=== PATIENT | female | born 1960 | race Two or more races ===

== ENCOUNTER 2021-01-29 08:19 | Emergency (ER) | payer OTHER ==
[~2021-01-29] VITALS: Ht 167.6 cm; Wt 111.1 kg
[2021-01-29 09:35] LABS: Basophils # (auto) 0 10 ^3/uL (0-0.2); Basophils % (auto) 0.7 % (0.0-2.0); Eosinophils # (auto) 0.2 10 ^3/uL (0-0.8); Eosinophils % (auto) 3.1 % (0.0-7.0); Hematocrit 41.4 % (36.0-46.0); Hemoglobin 13.7 g/dL (12.2-16.2); Lymphocytes # (auto) 1.1 10 ^3/uL (0.4-5.4); Lymphocytes % (auto) 21.2 % (10.0-50.0); Mean Corpuscular Hemoglobin 28.1 pg (28.0-32.0); Mean Corpuscular Volume 85.1 fL (80.0-100.0); Monocytes # (auto) 0.3 10 ^3/uL (0-1.3); Monocytes % (auto) 5.2 % (0.0-12.0); Neutrophils # (auto) 3.6 10 ^3/uL (1.6-8.6); Neutrophils % (auto) 69.8 % (37.0-80.0); Nucleated Red Blood Cells % 0.9 %; Red Blood Cells 4.87 10^6/uL (4.0-5.20); Red Cell Distribution Width 13.7 % (11.8-14.3); White Blood Cell 5.2 10^3/uL (4.4-10.8)
[2021-01-29 09:55] LABS: Albumin 3.9 g/dL (3.4-5.0); Calcium 8.9 mg/dL (8.5-10.1); Potassium 4.2 mmol/L (3.5-5.1)
[2021-01-29 09:59] LABS: BUN/Creatinine Ratio 22.9; Bilirubin, Total 0.4 mg/dL (0.2-1.0); Total Protein 7.3 g/dL (6.4-8.2)
[2021-01-29 12:12] LABS: Urine Bacteria FEW /hpf (None Seen); Urine Blood Negative /uL (Negative); Urine Mucus FEW (None Seen); Urine WBC 1 /hpf (0 - 5)
[2021-01-29 13:35] VITALS: BP 175/73
== END 2021-01-29 13:40 | disposition home or self-care (01) ==
LOC: ER 08:19
DX: K80.80 Other cholelithiasis without obstruction (principal)
CPT/HCPCS: 36415; 74176; 80053; 81001; 83690; 85025; 93005

== ENCOUNTER 2021-04-17 16:17 | Emergency (ER) | payer OTHER ==
[~2021-04-17] VITALS: Ht 170.2 cm; Wt 105.7 kg
[2021-04-17 19:40] VITALS: BP 146/89
== END 2021-04-17 19:48 | disposition home or self-care (01) ==
LOC: ER 16:17
DX: S39.012A Strain of muscle, fascia and tendon of lower back, initial encounter (principal); M79.604 Pain in right leg; M79.605 Pain in left leg; R07.81 Pleurodynia; X58.XXXA Exposure to other specified factors, initial encounter; Y93.89 Activity, other specified; Y92.89 Other specified places as the place of occurrence of the external cause; Y99.8 Other external cause status
CPT/HCPCS: 70450; 72100; 93005

== ENCOUNTER 2023-02-25 10:13 | Emergency (ER) | payer MEDICARE, OTHER ==
[~2023-02-25] VITALS: Ht 167.6 cm; Wt 106.3 kg
[2023-02-25 13:21] VITALS: BP 133/65; PULSE 71; RESP 18; TEMP 98.7; O2SAT 98
[2023-02-25] MEDS ORDERED: KETOROLAC TROMETH 30 MG/ML 1ML VIAL IM ONE (13:45)
[2023-02-25] MEDS ORDERED: methylPREDNISolone SOD SUCC 125 MG/2 ML VL IM ONE (13:45)
[2023-02-25] MEDS ORDERED: GABA-1308 PO (14:23)
[2023-02-25] MEDS ORDERED: MELO7.5T7 PO (14:23)
== END 2023-02-25 14:27 | disposition home or self-care (01) ==
LOC: ER 10:13
DX: R51.9 Headache, unspecified (principal); G50.0 Trigeminal neuralgia
CPT/HCPCS: 96372; 99284; J1885; J2930

== ENCOUNTER 2024-12-20 08:01 | Inpatient (IN) | payer OTHER ==
[~2024-12-20] VITALS: Ht 170.2 cm; Wt 112.2 kg
[~2024-12-20 08:01] MED LIST: ASPI1TAB20 PO; CEPH250C PO; HYDR-4902 PO; MELO7.5T7 PO; OMEP-434 PO; TRAZ-228 PO
[2024-12-20] MEDS ORDERED: fentaNYL CITRATE 100 MCG/2 ML VL ONE (10:14)
[2024-12-20] MEDS ORDERED: MIDAZOLAM HCL 2MG/2ML 2ml VIAL (1mg/ml) ONE ×2 (10:14→10:29)
[2024-12-20] MEDS: PREGABALIN CAPSULE 75 MG CAP PO ONE (10:16)
[2024-12-20] MEDS: ACETAMINOPHEN IV 1000 MG/100ML (10MG/ML) IV PRN (10:16)
[2024-12-20] MEDS: CELECOXIB 100 MG CAP PO ONE (10:16)
[2024-12-20] MEDS: ceFAZolin 2 GM/D5W50ml 50 ML IV ONE (10:18)
[2024-12-20] MEDS ORDERED: PROPOFOL 10 MG/ML 20 ML IV ONE (10:29)
[2024-12-20] MEDS: CEFEPIME 1GM/50ML 50 ML IV ONE (10:30)
[2024-12-20] MEDS: MORPHINE SULF PF 5 MG/10 ML VIAL ONE (11:04)
[2024-12-20] MEDS: KETOROLAC TROMETH 30 MG/ML 1ML VIAL ONE (11:04)
[2024-12-20] MEDS: BUPIVACAINE 0.25% INJ 50ML VIAL ONE (11:04)
[2024-12-20] MEDS: VANCOMYCIN HCL 1000 MG VL ONE (11:06)
[2024-12-20] MEDS ORDERED: MORPHINE SULFATE INJ 2 MG/ml SYRG IV PRN (11:45)
[2024-12-20] MEDS ORDERED: NITROGLYCERIN 0.4 MG SL TAB SL PRN (11:45)
[2024-12-20] MEDS ORDERED: ONDANSETRON HCL 4 MG/2 ML VIAL IV PRN ×2 (11:45→12:00)
[2024-12-20] MEDS ORDERED: ceFAZolin 1GM/50ML 50 ML IV SCH (11:45)
[2024-12-20 11:53] VITALS: PULSE 59; RESP 12
[2024-12-20] MEDS: LACTATED RINGER'S 1,000 ML IV SCH (11:53)
[2024-12-20] MEDS ORDERED: ACETAMINOPHEN IV 1000 MG/100ML (10MG/ML) IV PRN (12:00)
[2024-12-20] MEDS ORDERED: HYDROmorphone HCL 2 MG/ML VL/or syr IV PRN (12:00)
[2024-12-20] MEDS ORDERED: MEPERIDINE HCL (25 MG/ML) 1ML VIAL IV PRN (12:00)
--- NOTE | 2024-12-20 12:42 | DVH ---
CLINICAL INDICATION: S/P SURGERY TECHNIQUE: 3 radiographic views of the right knee were obtained. Comparison: XR KNEE COMPLETE RT on DOS: 11/08/22, XR KNEE COMPLETE LT on DOS: 11/07/22 FINDINGS/IMPRESSION: Postop changes total right knee arthroplasty. Skin closure millicent are in place anteriorly. Postop changes with air collections in the soft tissues consistent with operative changes.
[2024-12-20] MEDS: TRANEXAMIC ACID 20 ML ONE (13:08)
[2024-12-20] MEDS: CELECOXIB 100 MG CAP ONE (13:08)
[2024-12-20] MEDS: ACETAMINOPHEN IV 100 ML IV ONE (13:08)
[2024-12-20] MEDS: PREGABALIN CAPSULE 75 MG CAP ONE (13:09)
[2024-12-20] MEDS: GABAPENTIN 300 MG CAP ONE (13:09)
[2024-12-20] MEDS: PREGABALIN 25 MG CAP ONE (13:09)
[2024-12-20] MEDS: ROPIVACAINE 0.5% (5MG/ML) 20ML AMPULE IJ ONE (13:09)
[2024-12-20 16:00] VITALS: BP 139/89; PULSE 65; RESP 17; TEMP 97.5; O2SAT 98
--- NOTE | 2024-12-20 16:06 | DVHINCON2 ---
Date Seen: Dec 20, [address] BATES Allergies: Coded Allergies: NO KNOWN ALLERGIES (Unverified , 01/29/21) Home Meds Active Scripts Meloxicam (Meloxicam) 7.5 Mg Tab, 1 TAB PO DAILY for 30 Days, #30 TAB 0 Refills Prov:KAYDEN MCNALLY TEST SKEIN WINDER 02/25/23 Reported Medications Trazodone Hcl (Trazodone Hcl) 100 Mg Tab, PO, TAB 12/16/24 Hydrocodone-Acetaminophen (Hydrocodone Bitartrate/AC 5-325 mg) 1 Tab Tab, PO, TAB 12/16/24 Omeprazole Magnesium (Omeprazole) 20 Mg Tab, PO, TAB 12/16/24 Cephalexin (KEFLEX CAPSULE) 250 Mg Cp, PO, CAP 12/16/24 Aspirin (Aspir-81) 81 Mg Tab, 81 MG PO, TAB 12/16/24 Current Medications Current Medications Medications (Trade) Dose Ordered Sig/Rocky Route PRN Reason Start Time Stop Time Status Last Admin Acetaminophen (Ofirmev) 1,000 mg [id number] PRN IV PAIN SCALE 1-3 OR TEMP>100.4 12/20/24 09:45 12/20/24 10:00 DC 12/20/24 10:16 Cefepime HCl 50 ml @ 12.5 mls/hr DAILY IV 12/21/24 10:00 Lactated Ringer's 1,000 ml @ 100 mls/hr Q10H IV 12/20/24 11:45 12/20/24 11:53 Sodium Chloride (Saline Lock Ns) 10 ml Q8HR IV 12/20/24 14:00 Cefazolin Sodium 50 ml @ 50 mls/hr Q6H IV 12/20/24 11:45 12/20/24 13:15 DC Oxycodone/ Acetaminophen (Percocet 5/ 325MG Tablet) 1 tab Q4HP PRN PO MODERATE PAIN 12/20/24 11:45 Hydromorphone HCl (Dilaudid Injection) 1 mg Q2HP PRN IV SEVERE PAIN (7-10 PAIN SCALE) 12/20/24 12:41 Ondansetron HCl (Zofran) 4 mg Q6HP PRN IV NAUSEA / VOMITING 12/20/24 11:45 Docusate Sodium (Colace Capsule) 100 mg Q12HR PO 12/20/24 22:00 Nitroglycerin (Ntrostat Sublingual) 0.4 mg Q5MINP PRN SL FOR CHEST PAIN 12/20/24 11:45 Morphine Sulfate 2 mg Q30M PRN IV FOR CHEST PAIN 12/20/24 11:45 Aspirin (Ecotrin Enteric Coated Tablet) 81 mg BID PO 12/21/24 09:00 Acetaminophen (Ofirmev) 1,000 mg [id number] PRN IV PAIN SCALE 1-3 OR TEMP>100.4 12/20/24 12:00 12/20/24 12:05 DC Ondansetron HCl (Zofran) 4 mg ONCE PRN IV NAUSEA / VOMITING 12/20/24 12:00 12/20/24 12:03 DC Hydromorphone HCl (Dilaudid Injection) 0.5 mg Q10M PRN IV SEVERE PAIN (7-10 PAIN SCALE) 12/20/24 12:00 12/20/24 12:41 DC Meperidine HCl (Demerol Injection) 25 mg Q10M PRN IV MODERATE PAIN (4-6 PAIN SCALE) 12/20/24 12:00 12/20/24 12:31 DC Cefazolin Sodium 50 ml @ 50 mls/hr Q6H IV 12/20/24 18:00 12/21/24 06:59 UNV Vital Signs Vital Signs Date Time Temp Pulse Resp B/P (MAP) Pulse Ox O2 Delivery O2 Flow Rate FiO2 12/20/24 14:45 64 12 147/78 (101) 95 12/20/24 11:53 97.1 97.1 Assessment SEE DICTATED NOTE Plan discussed with: Patient Date of Service: Dec 20, 2024 Billing Provider: BECKY SHAFFER MD Common Visit Codes: [id number] INP/OBS CARE (HIGH) Secondary Visit Codes: [id number] CARE PLAN 30 MINUTES BECKY SHAFFER MD Dec 20, 2024 16:06
[2024-12-20] MEDS: SODIUM CHLOR 0.9% PF (SALINE LOCK) 10ML VIAL/SYR IV SCH (16:52)
[2024-12-20 17:59] VITALS: BP 142/82; PULSE 59; RESP 18; TEMP 97.9; O2SAT 96
--- NOTE | 2024-12-20 18:45 | DVHINCON2 ---
INTERNAL MEDICINE CONSULT HISTORY OF PRESENT ILLNESS: The patient is a 64-year-old lady who is admitted after she underwent surgery on the right knee for DJD of the knee. The patient at this time denies any significant pain. No chest pain, no shortness of breath, no nausea or vomiting. REVIEW OF SYSTEMS: Review of rest of systems are otherwise currently negative. PAST MEDICAL HISTORY: No significant illness in the past except for previous knee surgery. MEDICATIONS: She takes [place] p.r.n. and meloxicam. ALLERGIES: No known drug allergies. SOCIAL HISTORY: Denies smoking, alcohol. Lives at home with her . FAMILY HISTORY: Negative. PHYSICAL EXAMINATION: GENERAL: On exam, the patient is awake and alert. VITAL SIGNS: Temperature of 97.2, pulse of 64 per minute, blood pressure 147/78. SHEENT: Unremarkable. NECK: There is no JVD. No pedal edema. LUNGS: Equal bilaterally. No added sounds. CARDIOVASCULAR: S1 and S2 is regular and normal. ABDOMEN: Soft. There is no organomegaly. NEUROLOGIC: Nonfocal. MUSCULOSKELETAL: The right knee is currently in the dressing. ASSESSMENT AND PLAN: * Obesity. * Status post right knee surgery for degenerative joint disease of the knee for which she will be placed on pain medication and receive physical therapy. * Advanced care planning: The patient is a full code-Time spent was 17 minutes. MD ARABELLA Rothman/DUARTE TID: [id number] RECEIPT: [id number] MTDD
[2024-12-20] MEDS: ceFAZolin 1GM/50ML 50 ML IV SCH (20:18)
[2024-12-20] MEDS: HYDROmorphone HCL 2 MG/ML VL/or syr IV PRN (20:18)
[2024-12-20] MEDS: DOCUSATE SOD 100 MG CAP PO SCH (20:35)
[2024-12-20 20:59] VITALS: BP 164/92; PULSE 68; RESP 18; O2SAT 96
[2024-12-20] MEDS: OXYCODONE W/ ACETAMINOPHEN 5/325MG TABLET PO PRN (21:07)
[2024-12-21 00:41] VITALS: BP 115/83; PULSE 66; RESP 16; O2SAT 91
[2024-12-21] MEDS: ceFAZolin 1GM/50ML 50 ML IV SCH (02:23)
[2024-12-21 05:00] VITALS: BP 105/59; PULSE 76; RESP 18; O2SAT 93
[2024-12-21 06:15] LABS: Hematocrit 40.8 % (36.0-46.0); Hemoglobin 13.9 g/dL (12.2-16.2); Mean Corpuscular Hemoglobin 30.1 pg (28.0-32.0); Mean Corpuscular Volume 88.7 fL (80.0-100.0); Nucleated Red Blood Cells % 0.2 %
[2024-12-21 06:37] LABS: Alanine Aminotransferase 36 U/L (7-40); Albumin 4.1 g/dL (3.2-4.8); Alkaline Phosphatase 83 U/L (46-116); Anion Gap 10 (5-15); BUN/Creatinine Ratio 14.8 (10.0-20.0); Bilirubin, Total 0.5 mg/dL (0.2-1.0); Blood Urea Nitrogen 12 mg/dL (9-23); Calcium 9.0 mg/dL (8.7-10.4); Carbon Dioxide 27 mmol/L (20-31); Chloride 103 mmol/L (98-107); Potassium 4.6 mmol/L (3.5-5.1); Sodium 140 mmol/L (136-145); Total Protein 6.9 g/dL (5.7-8.2)
[2024-12-21 06:38] LABS: Glucose 140 mg/dL (74-106)
--- NOTE | 2024-12-21 07:24 | DVHOP2 ---
Operative Report - 2 Report Details Date: 12/20/24 Preop Diagnosis: Right knee osteoarthritis Postop Diagnosis: as above Surgeon: Terry Bates MD Anger Control Counselor: Dylan VILLALOBOS Anesthesiologist: Rayne BOSS Anesthesia: Regional Implant: [employer] CR Size 6 femur Size 4 tibia 10 CR poly 26 mm patella Consent: The patient was informed of the risks and benefits of the procedure. These include but are not limited to complications of anesthesia, postoperative infection, incomplete relief of symptoms, recurrence of symptoms, damage to blood vessels, nerves and tendons, deep venous thrombosis, pulmonary embolism and possible need for repeat surgery in the future. Estimated Blood Loss: 50 cc Name of Procedure Performed Right total knee arthroplasty Procedure Details Procedure Details: FINDINGS: Extensive degenerative disease with grade IV changes INDICATION: This patient has failed non-operative treatments for knee arthritis and is now indicated for a total knee replacement. Preoperatively in the waiting area as well as in the office, I had a long discussion with the patient r egarding the plan, the expected outcome, the risks, benefits, and alternatives of surgery. The risks include, but are not limited to, infection (which may require future surgery and removal of implants) , bleeding (which may require a transfusion), damage to nerves, arteries, veins, tendons, muscles and other adjacent structures. Also discussed the possibilities of intraoperative f ractures, implant loosening, heterotopic bone formation, and revision for variety of reasons, and medical complications etc. This was discussed at length and consent has been obtained. DESCRIPTION OF PROCEDURE: In the preoperative holding area, the consent was reviewed and the appropriate extremity was verified by the patient and marked with my initials. The patient was then transferred to the operating theatre. Appropriate anesthesia was induced. All bony prominences were well padded. A time out was performed verifying the side and site of surgery according to standard protocol. Preoperative antibiotics were given 10 minutes prior to tourniquet inflation. Tranexamic acid was given. A well padded thigh tourniquet was applied. The extremity was then prepped and draped in the usual sterile fashion. The extremity was exsanguinated and the tourniquet was inflated. We then made a mid-line incision, which we continued to the underlying capsular tissue. We performed a medial parapatellar arthrotomy. We periosteally exposed the proximal tibia, excised the anterior fat pad and synovium from the distal aspect of the femur. We then subluxed the patella and brought the knee up into flexion. The lateral meniscus, ACL were released. We used the appropriate gu tavo with attached computer navigation to secure the distal femoral cutting block to the femur with pins and completed the distal femoral cut in 0 degrees to the mechanical axis with an oscillating saw. We removed the distal femoral cutting block and turned our attention to the tibia. We used the extramedullary tibial alignment guide with computer navigation to secure the proximal tibial cutting block to the tibia with pins, setting it for a 2 mm cut from the more involved side, and completed the proximal tibial cut. We then used the spacer block and alignment armando to check the varus-valgus angle of our cuts and the extension gap. The knee was then balanced in extension to varus/valgus stress. We marked our femoral anatomy, including Aguada's line and the epicondylar axis. Using that as a rotational guide, we used the sizing guide to size our femur properly, using a stylus to ensure there would be no notching. We then used the AP cutting guide to make our anterior and posterior cuts and chamfer cuts with an oscillating saw. We again checked the flexion and extension gaps and coronal balancing. Next, we sized our tibia and secured a baseplate with appropriate rotation with pins. We placed a trial femur in position and completed preparation of the notch with reamers and box osteotome and placed a trial notch in position. We used trials to choose our liner size and then placed the liner in place and reduced the knee. We used an oscillating saw to resurface the patella, and used a guide to choose the button size and completed patella preparation with the drill. We then placed a trial button in place. At this point, we checked our seven parameters: 1) Limb alignment 2) Extension 3) Flexion against gravity 4) Flexion stability 5) Varus-valgus balancing 6) Component rotation 7) Patella tracking We were satisfied with these and removed all trials with the exception of the baseplate. We completed preparation of the tibia with the appropriate reamer and keel impactor and then removed the baseplate. We placed a bone plug in the distal femur and then irrigated and dried all bony surfaces and injected our pain cocktail. We impacted our tibial and patellar components into position. I then cemented femur component as there was softening of her bone and I did not want to rely on only porous fixation. We impacted our liner and reduced the knee and held it with axial loading. We released the tourniquet and achieved hemostasis where necessary. A dilute betadine solution (17.5mL in 500mL saline) was used to wash the joint and left to sit for 3 minutes. This was then irrigated out with copious amounts of pulse lavage. We sprinkled 1g vancomycin powder below the fascia and 1g above the fascia. We copiously irrigated the knee. We re-checked our seven parameters. We closed our capsular incision with a PDS style suture. We irrigated further. We closed the subcutaneous tissue with Vicryl suture and re-approximated the skin with millicent. We verified all lower extremity compartments were soft and compressible and that we had intact distal pulses. We wrapped the extremity in sterile Webril and pat bandage. The patient was transferred to the recovery room in stable condition. Condition Good Disposition Still a Patient TERRY BATES MD Dec 21, 2024 07:24
[2024-12-21 07:56] VITALS: BP 110/68; PULSE 74; RESP 20; TEMP 98.5; O2SAT 95
--- NOTE | 2024-12-21 08:13 | DVHPN2 ---
Progress Note Date Seen: Dec 21, 2024 Medical Necessity Reason Pt with a Central, PICC or Fol: No Subjective Patient reports: No new complaints Objective vital signs Vital Sign Date Time Temp Pulse Resp B/P (MAP) Pulse Ox O2 Delivery O2 Flow Rate FiO2 12/21/24 07:56 98.5 74 20 110/68 (82) 95 98.5 12/20/24 20:00 Room Air* 0 21 Total Intake and Output 12/20/24 12/20/24 12/21/24 15:00 23:00 07:00 Intake Total 200 ml 50 ml 850 ml Balance 200 ml 50 ml 850 ml medications Current Medications Medications Dose Ordered Sig/Rocky Route Start Time Stop Time Status Last Admin Dose Admin Cefepime HCl 50 ml @ 12.5 mls/hr DAILY IV 12/21/24 10:00 Lactated Ringer's 1,000 ml @ 100 mls/hr Q10H IV 12/20/24 11:45 12/20/24 17:37 100 MLS/HR Sodium Chloride 10 ml Q8HR IV 12/20/24 14:00 12/21/24 05:15 10 ML Oxycodone/ Acetaminophen 1 tab Q4HP PRN PO 12/20/24 11:45 12/20/24 21:07 1 TAB Hydromorphone HCl 1 mg Q2HP PRN IV 12/20/24 12:41 12/21/24 05:15 1 MG Ondansetron HCl 4 mg Q6HP PRN IV 12/20/24 11:45 Docusate Sodium 100 mg Q12HR PO 12/20/24 22:00 12/20/24 20:35 100 MG Nitroglycerin 0.4 mg Q5MINP PRN SL 12/20/24 11:45 Morphine Sulfate 2 mg Q30M PRN IV 12/20/24 11:45 Aspirin 81 mg BID PO 12/21/24 09:00 Cefazolin Sodium 50 ml @ 50 mls/hr Q6H IV 12/21/24 02:00 12/21/24 08:59 12/21/24 02:23 50 MLS/HR Examination: GENERAL:Normal, MSK:Abnormal laboratory and microbiology Laboratory Tests 12/21/24 04:30 Test 12/21/24 04:30 Range/Units Serum Glucose 140 H 74-106 mg/dL Problem List/Assessment/Plan Problem List/Assessment/Plan 64 year old female who is s/p Right TKA POD 1 1. pain control 2. DVT ppx 3. physical therapy 4. CPM as ordered 5. Ice as needed for swelling 6. d/c planning for home tomorrow Plan discussed with: Patient Date of Service: Dec 21, 2024 Billing Provider: SERGIO BATES MD Common Visit Codes: NOT BILLABLE CYNTHIA SUERO NP Dec 21, 2024 08:13
[2024-12-21] MEDS: ASPirin-EC 81 mg tab PO SCH (08:37)
[2024-12-21] MEDS: CEFEPIME 1GM/50ML 50 ML IV SCH (11:01)
--- NOTE | 2024-12-21 11:48 | DVHPN2 ---
Progress Note Date Seen: Dec 21, 2024 Medical Necessity Reason Pt with a Central, PICC or Fol: No Subjective Patient reports: No new complaints Review of Systems: HEENT:Normal, CVS:Normal, RESPIRATORY:Normal, GI:Normal, :Normal, MSK:Normal, NEURO:Normal Objective vital signs Vital Sign Date Time Temp Pulse Resp B/P (MAP) Pulse Ox O2 Delivery O2 Flow Rate FiO2 12/21/24 11:23 74 20 110/68 12/21/24 08:00 Room Air* 0 21 12/21/24 07:56 98.5 95 98.5 Total Intake and Output 12/20/24 12/20/24 12/21/24 15:00 23:00 07:00 Intake Total 200 ml 50 ml 850 ml Balance 200 ml 50 ml 850 ml medications Current Medications Medications Dose Ordered Sig/Rocky Route Start Time Stop Time Status Last Admin Dose Admin Cefepime HCl 50 ml @ 12.5 mls/hr DAILY IV 12/21/24 10:00 12/21/24 11:01 12.5 MLS/HR Lactated Ringer's 1,000 ml @ 100 mls/hr Q10H IV 12/20/24 11:45 12/20/24 17:37 100 MLS/HR Sodium Chloride 10 ml Q8HR IV 12/20/24 14:00 12/21/24 05:15 10 ML Oxycodone/ Acetaminophen 1 tab Q4HP PRN PO 12/20/24 11:45 12/20/24 21:07 1 TAB Hydromorphone HCl 1 mg Q2HP PRN IV 12/20/24 12:41 12/21/24 11:23 1 MG Ondansetron HCl 4 mg Q6HP PRN IV 12/20/24 11:45 Docusate Sodium 100 mg Q12HR PO 12/20/24 22:00 12/21/24 11:01 100 MG Nitroglycerin 0.4 mg Q5MINP PRN SL 12/20/24 11:45 Morphine Sulfate 2 mg Q30M PRN IV 12/20/24 11:45 Aspirin 81 mg BID PO 12/21/24 09:00 12/21/24 11:02 81 MG Examination: GENERAL:Normal, HEENT:Normal, NECK:Normal, LUNGS:Normal, CVS:Normal, ABDOMEN:Normal, MSK:Normal, MSK:Abnormal (right knee dressing), SKIN:Normal, NEURO:Normal, :Normal laboratory and microbiology Laboratory Tests 12/21/24 04:30 Test 12/21/24 04:30 Range/Units Serum Glucose 140 H 74-106 mg/dL Problem List/Assessment/Plan Problem List/Assessment/Plan * Obesity. * Status post right knee surgery for degenerative joint disease of the knee for which she will be placed on pain medication and receive physical therapy. * Advanced care planning: The patient is a full code-Time spent was 17 minutes. Plan discussed with: Patient My Orders My Orders Orders - BECKY SHAFFER MD Procedure Category Date Status Time Urinalysis LAB 12/20/24 Uncollected 16:03 Lactated Ringers 1000 PHA 12/21/24 Transmitted mL 12:00 * Dermatological Surgeon CONS 12/21/24 Transmitted Consult Date of Service: Dec 21, 2024 Billing Provider: BECKY SHAFFER MD Common Visit Codes: [id number] INP/OBS CARE(HIGH) BECKY SHAFFER MD Dec 21, 2024 11:48
[2024-12-21 12:20] VITALS: BP 132/77; PULSE 83; RESP 20; TEMP 98.4; O2SAT 90
[2024-12-21] MEDS: LACTATED RINGER'S 1,000 ML IV SCH (16:08)
[2024-12-21 16:55] VITALS: BP 126/76; PULSE 78; RESP 20; TEMP 98.6; O2SAT 96
[2024-12-21 20:43] VITALS: BP 151/80; PULSE 90; RESP 18; TEMP 98.5; O2SAT 95
[2024-12-22 00:44] VITALS: BP 134/70; PULSE 73; RESP 18; TEMP 98.4; O2SAT 96
[2024-12-22 06:39] LABS: Hematocrit 36.5 % (36.0-46.0); Hemoglobin 12.5 g/dL (12.2-16.2)
--- NOTE | 2024-12-22 07:25 | DVHPN2 ---
Progress Note Date Seen: Dec 22, 2024 Medical Necessity Reason Pt with a Central, PICC or Fol: No Subjective Patient reports: No new complaints Objective vital signs Vital Sign Date Time Temp Pulse Resp B/P (MAP) Pulse Ox O2 Delivery O2 Flow Rate FiO2 12/22/24 00:44 98.4 73 18 134/70 (91) 96 98.4 12/21/24 20:00 Room Air* 0 21 Total Intake and Output 12/21/24 12/21/24 12/22/24 15:00 23:00 07:00 Intake Total 560 ml 0 ml Output Total 400 ml Balance 160 ml 0 ml medications Current Medications Medications Dose Ordered Sig/Rocky Route Start Time Stop Time Status Last Admin Dose Admin Cefepime HCl 50 ml @ 12.5 mls/hr DAILY IV 12/21/24 10:00 12/21/24 11:01 12.5 MLS/HR Sodium Chloride 10 ml Q8HR IV 12/20/24 14:00 12/22/24 06:34 10 ML Oxycodone/ Acetaminophen 1 tab Q4HP PRN PO 12/20/24 11:45 12/21/24 18:29 1 TAB Hydromorphone HCl 1 mg Q2HP PRN IV 12/20/24 12:41 12/21/24 21:36 1 MG Ondansetron HCl 4 mg Q6HP PRN IV 12/20/24 11:45 Docusate Sodium 100 mg Q12HR PO 12/20/24 22:00 12/21/24 21:34 100 MG Nitroglycerin 0.4 mg Q5MINP PRN SL 12/20/24 11:45 Morphine Sulfate 2 mg Q30M PRN IV 12/20/24 11:45 Aspirin 81 mg BID PO 12/21/24 09:00 12/21/24 21:34 81 MG Lactated Ringer's 1,000 ml @ 60 mls/hr [id number] IV 12/21/24 12:00 12/21/24 16:08 60 MLS/HR Examination: GENERAL:Normal, MSK:Abnormal laboratory and microbiology Laboratory Tests 12/22/24 04:28 12/21/24 04:30 Test 12/21/24 04:30 Range/Units Serum Glucose 140 H 74-106 mg/dL Problem List/Assessment/Plan Problem List/Assessment/Plan 64 year old female who is s/p Right TKA POD 2 1. pain control 2. DVT ppx 3. physical therapy 4. CPM as ordered 5. Ice as needed for swelling 6. Prescriptions for percocet, colace, aspirin and keflex sent on 12/[facility] to [facility] 7. Patient has scheduled postop visit on 01/05/2025 at 10:45 8. patient aware that aquacel can remain in place until first postop visit 9. patient is clear for discharge from orthopedic standpoint with the following discharge recommendations: Total Knee Arthroplasty Discharge Instructions Wound Care 1. You will likely have a gel-type dressing over your wound, you may keep this on for 7-14 days after leaving the hospital until your first post-op visit, unless it becomes soiled or your skin becomes irritated. If a wound vac dressing is placed on your knee this is to be left in place for one week and will be changed as needed. After your remove the dressing or wound vac, the home health nurse may place clean dry dressing over your wound. Keep wound covered, clean and dry for two weeks. 2. Tracey will be removed during your initial post-op visit. If you have concerns about our wound, please call the office immediately. If nervous about staple removal can take pain pill one hour prior to appointment. 3. If there is drainage from your wound, change the dressing daily until it stops. If drainage lasts more than 10 days, call our office. 4. Low grade (up to 100 degrees) fever is common for the first week after surgery. You should take your temperature daily. If you have fevers of 101 or more, please call the office. Medication Management 1. You will be discharged with pain medication, a blood thinner (unless you were previously on a blood thinner prior to surgery) and stool softener. Please follow the instructions regarding these medications as provided by your nurse at the hospital upon discharge. 2. Blood clots in the leg are a known complication of surgery. It is very important that you take the medication to protect against clots. Depending on what you are discharged on typically it is Lovenox 40mg daily for 2 weeks or Aspirin 81mg twice daily for 4 weeks. After you finish this, you should then take baby Aspirin (81mg) once daily for 2 weeks. 3. You should restart all of your prescription medications once discharged from the hospital/surgery center unless specifically instructed otherwise. 4. Herbal supplements may be restarted 2 weeks after surgery. 5. If you have been given Coumadin as a blood thinner, please follow up with your mail room during the first two weeks after surgery to review medications and overall medical well-being. 6. Please note that narcotic pain medication may cause constipation. Please remember to take stool softeners (Colace) when using narcotics to help reduce the change of constipation. You should not use alcohol together with narcotic medication. Activity 1. CPM as ordered, goal is for 6 hours every day for the first 21 days of your recovery. Can break it up in to increments of 2-3 hours at a time. Most hospitals will start at 45 degrees of flexion, and increase by 5 degrees daily until the machine has been maxed out. The goal is to be at 90 degrees by first postop visit in 2 weeks. 2. No pool, jacuzzi, beach, lobato or bath for 6 weeks. Once all scabbing has fallen off patient can begin soaking and submerging knee under water for 15- minute periods at a time. 3. Physical therapy is critical in the first 2 weeks. If having issues with scheduling please inform office. 4. No running or jumping for 6 weeks. 5. Can walk and bear as much weight on the surgical leg as tolerated. No restrictions in regards to walking or standing. [facility] Instructions 1. Driving is not permitted within the first 2 weeks. 2. Your first postoperative visit will take place 2 weeks after discharge. Please call the office once you are home from the hospital to arrange this appointment. 3. Antibiotic preventative treatment is required before dental or other invasive procedures. Please ask your surgeon about this at your first postoperative visit. If you experience chest pain, shortness of breath or severe painful calf swelling, go to the nearest emergency room to be evaluated. Please call our office once your situation is stabilized. Plan discussed with: Patient Date of Service: Dec 22, 2024 Billing Provider: SERGIO BATES MD Common Visit Codes: NOT BILLABLE CYNTHIA SUERO NP Dec 22, 2024 07:25
[2024-12-22 08:59] VITALS: BP 128/68; PULSE 79; RESP 20; TEMP 98; O2SAT 92
--- NOTE | 2024-12-22 11:14 | DVHDS2 ---
Discharge Summary Date of Admission Dec 20, 2024 at 11:38 Date of Discharge: Dec 22, 2024 Labs/Diagnostic Data: Laboratory Results Test 12/22/24 04:28 12/21/24 04:30 Hemoglobin 12.5 g/dL (12.2-16.2) Hematocrit 36.5 % (36.0-46.0) White Blood Count 5.4 10^3/uL (4.4-10.8) Red Blood Count 4.60 10^6/uL (4.0-5.20) Mean Corpuscular Volume 88.7 fL (80.0-100.0) Mean Corpuscular Hemoglobin 30.1 pg (28.0-32.0) Mean Corpuscular Hemoglobin Concent 33.9 g/dL (32.0-36.0) Red Cell Distribution Width 13.6 % (11.8-14.3) Platelet Count 165 10^3/uL (140-450) Mean Platelet Volume 9.3 fL (6.9-10.8) Neutrophils (%) (Auto) 66.2 % (37.0-80.0) Lymphocytes (%) (Auto) 20.4 % (10.0-50.0) Monocytes (%) (Auto) 8.2 % (0.0-12.0) Eosinophils (%) (Auto) 4.7 % (0.0-7.0) Basophils (%) (Auto) 0.5 % (0.0-2.0) Neutrophils # (Auto) 3.6 10 ^3/uL (1.6-8.6) Lymphocytes # (Auto) 1.1 10 ^3/uL (0.4-5.4) Monocytes # (Auto) 0.4 10 ^3/uL (0-1.3) Eosinophils # (Auto) 0.3 10 ^3/uL (0-0.8) Basophils # (Auto) 0 10 ^3/uL (0-0.2) Nucleated Red Blood Cells 0.2 % Sodium Level 140 mmol/L (136-145) Potassium Level 4.6 mmol/L (3.5-5.1) Chloride Level 103 mmol/L (98-107) Carbon Dioxide Level 27 mmol/L (20-31) Anion Gap 10 (5-15) Blood Urea Nitrogen 12 mg/dL (9-23) Creatinine 0.81 mg/dL (0.550-1.02) Glomerular Filtration Rate Calc 80 mL/min (>90) BUN/Creatinine Ratio 14.8 (10.0-20.0) Serum Glucose 140 mg/dL (74-106) Calcium Level 9.0 mg/dL (8.7-10.4) Total Bilirubin 0.5 mg/dL (0.2-1.0) Aspartate Amino Transferase (AST) 49 U/L (13-40) Alanine Aminotransferase (ALT) 36 U/L (7-40) Alkaline Phosphatase 83 U/L (46-116) Total Protein 6.9 g/dL (5.7-8.2) Albumin 4.1 g/dL (3.2-4.8) Other Laboratory Tests 12/22/24 04:28 12/21/24 04:30 Brief Hx & Hospital Course: SEE DICTATED NOTE Condition at Discharge: Good Final Diagnosis/Problems List KNEE SURGERY Discharge Disposition: Home Discharge Instruct/Medications Diet: Cardiac 2g Na,low cholest Activity: No Restrictions, As Tolerated Follow Up/Referral: FU WITH PCP/[facility]O IN 2 WKS Medications: RESUME HOME MEDS SCRIPT PER PHARMACY Scheduled Meloxicam (Meloxicam), 1 TAB PO DAILY Miscellaneous Medications Aspirin (Aspir-81), 81 MG PO, (Reported) Cephalexin (Keflex Capsule), Unknown Dose PO, (Reported) Hydrocodone-Acetaminophen (Hydrocodone Bitartrate/AC 5-325 mg), Unknown Dose PO, (Reported) Omeprazole Magnesium (Omeprazole), Unknown Dose PO, (Reported) Trazodone Hcl (Trazodone Hcl), Unknown Dose PO, (Reported) Discharge Statement: "Patient was advised to return to the ER or call 911 if any headaches, dizziness, shortness of breath, chest pain, abdominal pain, bleeding, fevers, or worsening of medical condition. Patient was counseled about treatment plan, medications, possible side effects, patientverbalized understanding. All questions were answered to the best of my ability. This discharge took greater then 30 minutes in planning, reviewing documentation, counseling the patient, and discussing with other team members." ASSESSMENT ASSESSMENT Assessment KNEE SURGERY Date of Service: Dec 22, 2024 Billing Provider: BECKY SHAFFER MD Common Visit Codes: 48200-ILH/OBS DISCH DAY >30min BECKY SHAFFER MD Dec 22, 2024 11:14
--- NOTE | 2024-12-22 11:28 | DVHDS ---
DATE OF DISCHARGE: 12/22/2024 HISTORY OF PRESENT ILLNESS: The patient is a 64-year-old lady who was admitted after she underwent surgery on the right knee for DJD of the knee. HOSPITAL COURSE: The patient has done well postoperatively. Her hemoglobin at the time of discharge is 12.5. The patient has now been cleared for discharge by Orthopedics, to resume her home medications as well as to be on medications as per Orthopedics. She will have home physical therapy along with a home CPM machine and home walker. FINAL DIAGNOSES: Therefore: * Obesity. * Status post right knee surgery for DJD of the knee. Time spent in discharge planning and review of plan with the patient and nursing was 38 minutes. MD ARABELLA Rothman/TAYLOR TID: [id number] RECEIPT: [id number]
[2024-12-22 13:56] VITALS: BP 119/57; PULSE 73; RESP 18; TEMP 97.7; O2SAT 93
[2024-12-22 17:00] VITALS: BP 138/64; PULSE 76; RESP 18; TEMP 98.4; O2SAT 97
[2024-12-22 21:02] VITALS: BP 118/52; PULSE 77; RESP 18; TEMP 98.4; O2SAT 91
[2024-12-23 01:10] VITALS: BP 134/59; PULSE 76; RESP 18; TEMP 98.6; O2SAT 93
[2024-12-23] MEDS: MELATONIN 5 MG TAB PO ONE (01:15)
[2024-12-23 05:31] VITALS: BP 148/64; PULSE 79; RESP 18; TEMP 98.3; O2SAT 94
[2024-12-23 06:17] LABS: Hematocrit 36.7 % (36.0-46.0); Hemoglobin 12.6 g/dL (12.2-16.2)
[2024-12-23 08:00] VITALS: PULSE 75; O2SAT 95
[2024-12-23 09:00] VITALS: BP 152/80; PULSE 75; RESP 18; TEMP 98.2; O2SAT 95
[2024-12-23 13:00] VITALS: BP 142/98; PULSE 82; RESP 18; TEMP 98.2; O2SAT 96
--- NOTE | 2024-12-23 13:04 | DVHPN2 ---
Progress Note Date Seen: Dec 23, 2024 Medical Necessity Reason Pt with a Central, PICC or Fol: No Subjective Patient reports: No new complaints Review of Systems: HEENT:Normal, CVS:Normal, RESPIRATORY:Normal, GI:Normal, :Normal, MSK:Normal, NEURO:Normal Objective vital signs Vital Sign Date Time Temp Pulse Resp B/P (MAP) Pulse Ox O2 Delivery O2 Flow Rate FiO2 12/23/24 09:00 98.2 75 18 152/80 (104) 95 98.2 12/23/24 08:00 Room Air* 0 21 Total Intake and Output 12/22/24 12/22/24 12/23/24 15:00 23:00 07:00 Intake Total 680 ml 150 ml Output Total 700 ml Balance -20 ml 150 ml medications Current Medications Medications Dose Ordered Sig/Rocky Route Start Time Stop Time Status Last Admin Dose Admin Cefepime HCl 50 ml @ 12.5 mls/hr DAILY IV 12/21/24 10:00 12/23/24 10:15 12.5 MLS/HR Sodium Chloride 10 ml Q8HR IV 12/20/24 14:00 12/23/24 05:37 10 ML Oxycodone/ Acetaminophen 1 tab Q4HP PRN PO 12/20/24 11:45 12/21/24 18:29 1 TAB Hydromorphone HCl 1 mg Q2HP PRN IV 12/20/24 12:41 12/22/24 16:16 1 MG Ondansetron HCl 4 mg Q6HP PRN IV 12/20/24 11:45 Docusate Sodium 100 mg Q12HR PO 12/20/24 22:00 12/22/24 21:57 100 MG Nitroglycerin 0.4 mg Q5MINP PRN SL 12/20/24 11:45 Morphine Sulfate 2 mg Q30M PRN IV 12/20/24 11:45 Aspirin 81 mg BID PO 12/21/24 09:00 12/23/24 10:16 81 MG Lactated Ringer's 1,000 ml @ 60 mls/hr [id number] IV 12/21/24 12:00 12/21/24 16:08 60 MLS/HR Examination: GENERAL:Normal, HEENT:Normal, NECK:Normal, LUNGS:Normal, CVS:Normal, ABDOMEN:Normal, MSK:Normal, MSK:Abnormal (right knee surgery), SKIN:Normal, NEURO:Normal, :Normal laboratory and microbiology Laboratory Tests 12/23/24 04:48 12/21/24 04:30 Test 12/21/24 04:30 Range/Units Serum Glucose 140 H 74-106 mg/dL Problem List/Assessment/Plan Problem List/Assessment/Plan * Obesity. * Status post right knee surgery for degenerative joint disease of the knee for which she will be placed on pain medication and receive physical therapy. * Advanced care planning: The patient is a full code-Time spent was 17 minutes. dc planning to home today Plan discussed with: Patient, Spouse Date of Service: Dec 23, 2024 Billing Provider: BECKY SHAFFER MD Common Visit Codes: [id number] INP/OBS CARE(HIGH) BECKY SHAFFER MD Dec 23, 2024 13:04
[2024-12-23 16:01] VITALS: TEMP 36.8
[2024-12-23] MEDS ORDERED: MELATONIN 5 MG TAB PO ONE (22:00)
== END 2024-12-23 17:05 | disposition home health service (06) | DRG 470 ==
LOC: SUR 08:01 → OVERFLOW 11:38 → WEST WING 16:08
PROVIDERS: ADMIT Internal Medicine; ATTEND Internal Medicine
PROC: 0SRC0J9 Replacement of Right Knee Joint with Synthetic Substitute, Cemented, Open Approach (ICD-10-PCS; principal; 2024-12-20 10:18)
DX: M17.11 Unilateral primary osteoarthritis, right knee (principal); E66.9 Obesity, unspecified; Z79.899 Other long term (current) drug therapy; Z79.2 Long term (current) use of antibiotics; Z79.82 Long term (current) use of aspirin; Z68.38 Body mass index [BMI] 38.0-38.9, adult
CPT/HCPCS: 36415; 73562; 80053; 85014; 85018; 85025; 86850; 86900; 86901; 97110; 97116; 97163; 97530; G0378; J0131; J1885; J2250; J2704; J3490